=== PATIENT | female | born 1950 | race Caucasian/White ===

== ENCOUNTER → 2019-01-29 | Outpatient (CLI) | payer OTHER, MEDICARE ==
[~2019-01-29] MED LIST: EPIPEN0.3 MG/0.3; FISHOIL OR; NORCO 5-325 TA1 EACH PO; QVAR HFA 440 MCG/UN1 IH; SINGULAIR 10 MG10 M1 OR; THERA-TABS M C1 EACH OR; VENTOLIN17 GM IH; ZYRTEC10 M2 OR
--- NOTE | 2019-01-31 16:06 | PATH ---
[facility] [address] [place] [address] PATHOLOGY RPT PROCEDURE Name: ISAACMAGDA Room #: REG [facility] Jina.#: [id number] Admission: 01/29/19 Date of : 54 Discharge: Report #: [id number] Path Case #: [id number] [facility] Accession Number: [id number] . 01 Material submitted: . PART A: colon - POLYP AT TRANSVERSE COLON. Modifiers: transverse PART B: rectum - POLYP AT RECTUM . 01 Clinical history: . Preop DX: screening Postop DX: colon polyp, diverticulosis, rectal polyp . 02 Diagnosis: A. Polyp, at transverse colon, endoscopic biopsy: - Tubular adenoma. - Negative for high-grade dysplasia. . B. Polyp, at rectum, endoscopic biopsy: - Hyperplastic polyp. - Negative for dysplasia. . (IUV:ngoc; 01/31/2019) MBR 01/31/2019 1332 Local . 02 Electronically signed: . Bianca Rooney MD, Pathologist NPI- [id number] . 01 Gross description: . A. Received in formalin labeled "Magda Gray, polyp at transverse colon," is a segment of quispe-brown soft tissue measuring 0.3 x 0.3 x 0.3 cm in greatest dimensions. The specimen is submitted entirely in cassette A1. . B. Received in formalin labeled "Magda Gray, polyp at rectum," are two segments of quispe-brown soft tissue measuring 0.4 x 0.3 x 0.1 cm and 0.3 x 0.2 x 0.2 cm in greatest dimensions. The specimen is submitted entirely in cassette B1. ([facility]; 01/30/2019) XDC/XDC 01/30/2019 0943 Local . 02 Pathologist provided ICD-10: D12.3, K62.1 . 02 CPT . 733059, 597051 Specimen Comment: A courtesy [place] [address] PATHOLOGY RPT PROCEDURE Name: MAGDA GRAY Room #: REG [facility]#: [id number] Admission: 01/29/19 Date of : 54 Discharge: Report #: [id number] Path Case #: [id number] Specimen Comment: [phone], . Specimen Comment: Report sent to / DR TRUJILLO Performed at: [address] [facility], [place], [place] [id number] MD Sujit Campos MD Phone: [phone] Performed at: [address] [id number] MD Bianca Rooney MD Phone: [phone]
--- NOTE | 2019-02-03 12:48 | P ---
[facility] [place] [address] [place] [address] PROCEDURE REPORT Name: KORTNEY GRAY Room #: REG [facility]#: [id number] Admission: 01/29/19 Attend Phys: Rafat Finney Discharge: Date of : 54 Report #: [id number] THIS REPORT FOR: //name// CC: Rafat Khan DATE OF SERVICE: 01/29/2019 PROCEDURE PERFORMED: Colonoscopy with biopsies. HISTORY OF PRESENT ILLNESS: The patient is a 68-year-old female here today for routine screening colonoscopy. She denies any symptoms. No family history of colon cancer. DESCRIPTION OF PROCEDURE: The risks and benefits of the procedure were explained to the patient, those risks including but not limited to bleeding, perforation and the risk of sedation. She understood these risks and gave informed consent. Sedation was given using propofol per Anesthesia. Next, a digital rectal exam was initially performed, which was normal. Next, using a standard Olympus colonoscope, the scope was placed in the patient's anus and advanced under direct vision to the cecum. The overall prep was excellent. The cecum and ileocecal valve were normal in appearance. The ascending colon was normal. In the transverse colon, a 4 mm sessile polyp was noted and removed with cold forceps, otherwise normal. Descending colon was normal. A few scattered diverticula were noted in the sigmoid colon, otherwise normal. In the rectum, a 3 mm sessile polyp was noted, also removed with cold forceps. On retroflexion, a single small internal hemorrhoid was noted. No evidence of bleeding. Scope was then withdrawn and the procedure terminated. The patient tolerated the procedure well. IMPRESSION: 1. Two small colonic polyps. 2. Sigmoid diverticulosis. 3. Small internal hemorrhoid. 4. Otherwise, normal colonoscopy. RECOMMENDATIONS: 1. Await biopsy results. 2. If polyps are hyperplastic, repeat in 10 years; if adenomatous polyp, repeat in [address] [address] PROCEDURE REPORT Name: KORTNEY GRAY [id number] Admission: 01/29/19 Attend Phys: Rafat Finney Discharge: Date of : 54 Report #: [id number] Thank you for allowing me to participate in her care. <ELECTRONICALLY SIGNED> By: Rafat Dominguez MD 02/03/19 1248 1023 0039 Rafat Dominguez MD /nt
== END | disposition home or self-care (01) ==
LOC: GI 07:38
DX: Z12.11 Encounter for screening for malignant neoplasm of colon (principal); D12.3 Benign neoplasm of transverse colon; K62.1 Rectal polyp; K57.30 Diverticulosis of large intestine without perforation or abscess without bleeding; K64.8 Other hemorrhoids; Z91.040 Latex allergy status; Z79.899 Other long term (current) drug therapy; Z98.890 Other specified postprocedural states
CPT/HCPCS: 62110; 62900